=== PATIENT | male | born 1950 ===

== ENCOUNTER 2021-08-15 07:40 | Day surgery (SDC) | payer OTHER ==
[~2021-08-15 07:40] MED LIST: ADULT LOW DOSE81 M1
[2021-08-15] MEDS ORDERED: PERCOCET 5-3251 EACH PO (12:38)
== END 2021-08-15 16:20 | disposition home or self-care (01) ==
LOC: CIR.AMB 07:40
PROVIDERS: ATTEND Surgery
DX: K60.1 Chronic anal fissure (principal); K62.4 Stenosis of anus and rectum; Z20.822 Contact with and (suspected) exposure to COVID-19

== ENCOUNTER 2021-08-21 22:32 | Emergency (ER) | payer OTHER ==
[~2021-08-21] VITALS: Ht 157.5 cm; Wt 63.5 kg
[~2021-08-21 22:32] MED LIST changes: +PERCOCET 5-3251 EACH PO
[2021-08-21] MEDS ORDERED: NORVASC5 MG (22:46)
[2021-08-21] MEDS ORDERED: ATACAND4 MG (22:46)
[2021-08-22] MEDS ORDERED: MOBIC15 MG PO (06:33)
== END 2021-08-22 06:41 | disposition home or self-care (01) ==
LOC: ER 22:32
DX: K62.89 Other specified diseases of anus and rectum (principal)